=== PATIENT | female | born 1950 | race Caucasian/White ===

== ENCOUNTER 2019-03-01 11:01 | Inpatient (IN) | payer MEDICARE, OTHER ==
[~2019-03-01] VITALS: Ht 167.6 cm; Wt 73.8 kg
[2019-03-01 11:43] LABS: BASOPHILS % (AUTO) 1.1 % (0-1); EOSINOPHILS # (AUTO) 0.1 X10'3 (0-0.9); EOSINOPHILS % (AUTO) 2.7 % (0-6); HEMATOCRIT 45.4 % (35.0-45.0); HEMOGLOBIN 14.7 g/dl (12.0-16.0); LYMPHOCYTES # (AUTO) 1.5 X10'3 (1.1-4.8); LYMPHOCYTES % (AUTO) 44.3 % (21-51); MEAN CORPUSCULAR HEMOGLOBIN 30.3 PG (27.0-31.0); MEAN CORPUSCULAR HGB CONC 32.5 g/dL (33.0-36.5); MEAN CORPUSCULAR VOLUME 93.3 FL (78-98); MONOCYTES # (AUTO) 0.4 X10'3 (0-0.9); MONOCYTES % (AUTO) 12.6 % (2-12); NEUTROPHILS # (AUTO) 1.3 X10'3 (1.8-7.7); NEUTROPHILS % (AUTO) 39.3 % (42-75); PLATELET COUNT 206 X10'3 (140-440); RED BLOOD COUNT 4.87 X10'6 (4.20-5.60); RED CELL DISTRIBUTION WIDTH 13.4 % (11.5-14.5); WHITE BLOOD COUNT 3.4 X10'3 (4.5-11.0)
[2019-03-01 11:46] LABS: PARTIAL THROMBOPLASTIN TIME 28 SECONDS (22-32)
[2019-03-01 11:51] LABS: ALANINE AMINOTRANSFERASE 25 U/L (12-78); ALBUMIN 3.8 G/DL (3.4-5.0); ALBUMIN/GLOBULIN RATIO 1.1 (1.1-1.5); ALKALINE PHOSPHATASE 102 IU/L (46-116); ANION GAP 11 (8-16); ASPARTATE AMINO TRANSFERASE 22 U/L (10-37); BILIRUBIN,TOTAL 0.4 MG/DL (0.1-1.0); BLOOD UREA NITROGEN 21 MG/DL (7-18); BUN/CREATININE RATIO 15.7 (6.6-38.0); CALCIUM 10.3 MG/DL (8.5-10.1); CHLORIDE 105 MMOL/L (99-107); CREATININE 1.34 MG/DL (0.40-0.90); GLUCOSE 147 MG/DL (70-104); POTASSIUM 4.6 MMOL/L (3.5-5.1); SODIUM 141 MMOL/L (135-145); TOTAL CARBON DIOXIDE 25.3 MMOL/L (24-32); TOTAL PROTEIN 7.4 G/DL (6.4-8.2); eGFR 39 ML/MIN
[2019-03-01] MEDS ORDERED: METO50TA16 PO (13:53)
[2019-03-01] MEDS ORDERED: ASPI81TA30 PO (13:53)
[2019-03-01] MEDS ORDERED: OMEP40CA13 PO (13:53)
[2019-03-01] MEDS ORDERED: ROSU5TAB12 PO (13:54)
[2019-03-01] MEDS ORDERED: nitroGLYCERIN 1gm ointment UD TP ONE (13:55)
[2019-03-01] MEDS ORDERED: TACR1CAP2 PO ×2 (13:55)
[2019-03-01] MEDS ORDERED: MYCO250C PO (13:56)
[2019-03-01] MEDS ORDERED: DULA1.5P SQ (14:14)
[2019-03-01] MEDS ORDERED: INSU200I4 SQ (14:14)
[2019-03-01] MEDS ORDERED: NOVLG SQ (14:14)
[2019-03-01] MEDS ORDERED: nitroGLYCERIN 0.4mg SUBLingual tab SL PRN (14:20)
[2019-03-01] MEDS ORDERED: dextrose 50%-water 50ml dispensing syringe IV PRN ×2 (14:20)
[2019-03-01] MEDS ORDERED: mag hydrox/Alum hydrox/simeth 30ml oral suspension PO PRN (14:20)
[2019-03-01] MEDS ORDERED: HYDROcodone/acetaminophen 10/325mg tab PO PRN (14:20)
[2019-03-01] MEDS ORDERED: potassium CL 10mEq/100ml bag 100 ML IV PRN ×2 (14:20)
[2019-03-01] MEDS ORDERED: MESSAGE TO PHARMACY PO ONE (14:20)
[2019-03-01] MEDS ORDERED: regadenoson 0.4mg/5ml syringe IV PRN (14:20)
[2019-03-01] MEDS ORDERED: ondansetron/PF 4mg/2ml inj IV PRN (14:20)
[2019-03-01] MEDS ORDERED: bisacodyl 10mg suppository rectal RC PRN (14:20)
[2019-03-01] MEDS ORDERED: diphenhydrAMINE 25mg capsule PO PRN (14:20)
[2019-03-01] MEDS ORDERED: magnesium 4gm in 100ml NS 100 ML IV PRN (14:20)
[2019-03-01] MEDS: K and/or MAG REPLACEMENT MC SCH (14:20)
[2019-03-01] MEDS ORDERED: glucagon, human recombinant 1mg kit SUBCUT PRN (14:20)
[2019-03-01] MEDS ORDERED: acetaminophen 325mg tablet PO PRN ×2 (14:20)
[2019-03-01] MEDS ORDERED: morphine 2 MG/ML inj. syringe IV PRN ×2 (14:20)
[2019-03-01] MEDS ORDERED: magnesium Cl slow-release 64mg tablet PO PRN (14:20)
[2019-03-01] MEDS ORDERED: potassium Cl 20 mEq SR tablet PO PRN ×2 (14:20)
[2019-03-01] MEDS ORDERED: aminophylline 250mg/10ml inj. IV PRN (14:20)
[2019-03-01] MEDS ORDERED: HYDROcodone/acetaminophen 5mg/325mg tablet PO PRN (14:20)
[2019-03-01] MEDS ORDERED: magnesium hydroxide 30ml (MOM) UD suspension PO PRN (14:20)
[2019-03-01] MEDS ORDERED: metoprolol tartrate 1mg/ml inj IV PRN (14:20)
[2019-03-01] MEDS ORDERED: dextrose ORAL solution 15 GM/59 ML bottle PO PRN ×2 (14:20)
[2019-03-01] MEDS ORDERED: magnesium 2GM in 50ml NS 50 ML IV PRN (14:20)
[2019-03-01] MEDS ORDERED: insulin Lispro (HumaLOG) vial - multi-dose SQ SCH (14:20)
[2019-03-01] MEDS ORDERED: diphenhydrAMINE 50 mg/ml inj IV PRN (14:20)
[2019-03-01 15:07] LABS: CLARITY,URINE CLEAR (Clear); COLOR,URINE YELLOW (Yellow); GLUCOSE, URINE NEGATIVE (Neg); KETONES,URINE NEGATIVE (Neg); LEUKOCYTE ESTERASE ,URINE NEGATIVE (Neg); NITRITES, URINE NEGATIVE (Neg); OCCULT BLOOD,URINE NEGATIVE (Neg); PROTEIN,URINE NEGATIVE (Neg); UROBILINOGEN,URINE 0.2 E.U/dL (0.2-1.0)
[2019-03-01 15:11] LABS: UA COLLECTION TYPE CLN CATCH MIDSTREAM
[2019-03-01] MEDS: normal saline 1000ml 1,000 ML IV SCH ×2 (15:12→15:16)
[2019-03-01 15:29] LABS: HEMOGLOBIN A1C 7.1 % (4.5-6.2)
--- NOTE | 2019-03-01 16:00 | NUR ---
Patient in room PCU 3019. I have received report from Sea CANALES and had the opportunity to ask questions and assume patient care.
[2019-03-01 17:38] VITALS: BP 133/72
[2019-03-01 18:00] VITALS: BP 97/55
--- NOTE | 2019-03-01 18:38 | NUR ---
Problems reprioritized. Patient report given, questions answered & plan of care reviewed with Edin CANALES.
--- NOTE | 2019-03-01 18:40 | NUR ---
Patient in room PCU 3019. I have received report from PARKER Shin and had the opportunity to ask questions and assume patient care.
[2019-03-01 19:00] VITALS: BP 97/55
[2019-03-01 20:00] VITALS: BP_SYST 112; BP_SYST 119; BP_DIAS 56; BP_DIAS 63
--- NOTE | 2019-03-01 20:00 | NUR ---
1999 Orthostatic VS negative. RN notified.
[2019-03-01] MEDS: heparin, porcine 5000 units/ml vial SQ SCH (20:26)
[2019-03-01] MEDS ORDERED: temazepam 15mg capsule PO PRN (21:00)
[2019-03-01] MEDS ORDERED: insulin glargine (Lantus) pen - multi-dose SQ SCH (21:00)
--- NOTE | 2019-03-01 21:10 | NUR ---
Patient states that she doesn't take Lantus at night because her PCP told her that her blood sugar fluctuates a lot. I expalined to her that she met protocol at 21:00 her BS is 208. Since she gets only humalog she will think about it. Addendum: 03/02/19 at 0026 by Edin Parham RN Pt decided to get the Lantus. Lantus was administered late due to patient reluctance at first. Her GFR was 30 so she is getting 12 units and no correctional nightime.
[2019-03-01 22:00] VITALS: BP 118/64
[2019-03-01] MEDS ORDERED: tacrolimus anhydrous 1mg capsule PO SCH ×2 (22:30)
[2019-03-01] MEDS ORDERED: mycophenolate mofetil 250mg capsule PO SCH (22:30)
--- NOTE | 2019-03-01 22:30 | NUR ---
Patient states that her renal transplant medications should be given at 09:30 and 21:30. Patient took the renal meds scheduled at 2129. Will call pharmacy and inform them that patient has her own medications in her purse. Addendum: 03/02/19 at 0022 by Edin Parham RN Per Pharmacy: patient cannot have meds on purse and ask patient if she wants her own medications or the pharmacy's. Pt states that she wants her own medications. All patients medications were send to the pharmacy. Also, her medications are schedule for 929 and 2129 now.
[2019-03-01 23:00] VITALS: BP 122/76
[2019-03-02] VITALS (14 sets, daily range): BP systolic 110–179; BP diastolic 58–92
[2019-03-02] MEDS ORDERED: mycophenolate mofetil 250mg capsule PO SCH ×4 (01:55→09:30)
[2019-03-02] MEDS ORDERED: ROSUVASTATIN CALCIUM PO SCH (02:00)
[2019-03-02] MEDS ORDERED: OMEPRAZOLE PO SCH (02:20)
[2019-03-02 05:55] LABS: BASOPHILS % (AUTO) 0.8 % (0-1); EOSINOPHILS # (AUTO) 0.1 X10'3 (0-0.9); EOSINOPHILS % (AUTO) 2.5 % (0-6); HEMATOCRIT 36.6 % (35.0-45.0); HEMOGLOBIN 12.1 g/dl (12.0-16.0); LYMPHOCYTES # (AUTO) 1.9 X10'3 (1.1-4.8); LYMPHOCYTES % (AUTO) 49.5 % (21-51); MEAN CORPUSCULAR HEMOGLOBIN 30.4 PG (27.0-31.0); MEAN CORPUSCULAR HGB CONC 33.1 g/dL (33.0-36.5); MEAN CORPUSCULAR VOLUME 91.8 FL (78-98); MEAN PLATELET VOLUME 9.1 FL (7.4-10.4); MONOCYTES # (AUTO) 0.4 X10'3 (0-0.9); MONOCYTES % (AUTO) 10.9 % (2-12); NEUTROPHILS # (AUTO) 1.4 X10'3 (1.8-7.7); NEUTROPHILS % (AUTO) 36.3 % (42-75); PLATELET COUNT 169 X10'3 (140-440); RED BLOOD COUNT 3.99 X10'6 (4.20-5.60); RED CELL DISTRIBUTION WIDTH 13.5 % (11.5-14.5); WHITE BLOOD COUNT 3.9 X10'3 (4.5-11.0)
[2019-03-02 05:57] LABS: ALANINE AMINOTRANSFERASE 24 U/L (12-78); ALBUMIN/GLOBULIN RATIO 1.1 (1.1-1.5); ALKALINE PHOSPHATASE 79 IU/L (46-116); ANION GAP 8 (8-16); ASPARTATE AMINO TRANSFERASE 20 U/L (10-37); BILIRUBIN,TOTAL 0.3 MG/DL (0.1-1.0); BLOOD UREA NITROGEN 24 MG/DL (7-18); BUN/CREATININE RATIO 18.9 (6.6-38.0); CALCIUM 9.1 MG/DL (8.5-10.1); CHLORIDE 107 MMOL/L (99-107); CREATININE 1.27 MG/DL (0.40-0.90); GLUCOSE 121 MG/DL (70-104); SODIUM 138 MMOL/L (135-145); TOTAL CARBON DIOXIDE 22.9 MMOL/L (24-32); TOTAL PROTEIN 5.7 G/DL (6.4-8.2); eGFR 42 ML/MIN
[2019-03-02 05:59] LABS: CHOL/HDL RATIO 2.7 (0.00-4.99); CHOLESTEROL 126 MG/DL (0-200); HDL CHOLESTEROL 47 MG/DL (35-60); LDL CHOLESTEROL 71 MG/DL (50-100); MAGNESIUM 1.4 MG/DL (1.5-2.4); PHOSPHORUS 3.4 MG/DL (2.3-4.5); TRIGLYCERIDES 89 MG/DL (20-135)
--- NOTE | 2019-03-02 06:27 | NUR ---
Problems reprioritized. Patient report given, questions answered & plan of care reviewed with PARKER Bolaños. Pt stable at shift change.
--- NOTE | 2019-03-02 06:29 | NUR ---
Patient in room PCU 3019. I have received report from PARKER Jesus and had the opportunity to ask questions and assume patient care.
[2019-03-02] MEDS: K and/or MAG REPLACEMENT MC SCH (07:32)
[2019-03-02] MEDS: heparin, porcine 5000 units/ml vial SQ SCH (07:39)
[2019-03-02] MEDS ORDERED: ROSUVASTATIN CALCIUM 5 MG PO SCH (08:00)
[2019-03-02] MEDS ORDERED: aspirin 81mg tablet.DR PO SCH (09:30)
[2019-03-02] MEDS ORDERED: metoprolol tartrate 50mg tablet PO SCH (09:30)
[2019-03-02] MEDS ORDERED: tacrolimus anhydrous 1mg capsule PO SCH ×2 (09:30→21:30)
[2019-03-02] MEDS: normal saline 1000ml 1,000 ML IV SCH (10:18)
[2019-03-02] MEDS ORDERED: aminophylline inj. 10 ML IV ONE (10:45)
[2019-03-02] MEDS ORDERED: OMEPRAZOLE 40MG PO SCH (11:30)
--- NOTE | 2019-03-02 13:40 | NUR ---
PAGER ID: [phone] MESSAGE: [phone] Kofi Ghotra: Lexiscan results in, Normal Lexiscan cardiac rest and stress test, can we start feeding pt? Thanks Joel [phone]
--- NOTE | 2019-03-02 15:35 | NUR ---
Discharged. PIV taken out and tele returned. Educated on DM survival skill, chest pain and follow-up. Auxillary wheeled out to car and patient was picked up by . All forms and medicare dc rights signed. Stable for DC per MD. Left with all belongs and meds from pharm were returned to patient.
== END 2019-03-02 15:44 | disposition home or self-care (01) | DRG 392 ==
LOC: ER 11:03 → OBSVTOIN 14:30 → ED HOLD 14:30 → PCU 3S 15:50
PROVIDERS: ADMIT Family Medicine; ATTEND Family Medicine
PROC: 4A02XM4 Measurement of Cardiac Total Activity, External Approach (ICD-10-PCS; principal; 2019-03-02)
PROC: 3E033HZ Introduction of Radioactive Substance into Peripheral Vein, Percutaneous Approach (ICD-10-PCS; 2019-03-02)
DX: K21.9 Gastro-esophageal reflux disease without esophagitis (principal); Z94.4 Liver transplant status; N17.9 Acute kidney failure, unspecified; Z94.0 Kidney transplant status; I10 Essential (primary) hypertension; E11.9 Type 2 diabetes mellitus without complications; E78.00 Pure hypercholesterolemia, unspecified; E78.5 Hyperlipidemia, unspecified; I25.10 Atherosclerotic heart disease of native coronary artery without angina pectoris; Z79.4 Long term (current) use of insulin; Z79.82 Long term (current) use of aspirin; Z80.0 Family history of malignant neoplasm of digestive organs; Z98.61 Coronary angioplasty status; Z80.8 Family history of malignant neoplasm of other organs or systems
CPT/HCPCS: 36415; 71045; 78452; 80053; 80061; 81003; 82948; 83036; 83735; 84100; 84484; 85025; 85610; 85730; 93005; 93017; 93306; 97116; 97161; 97530; 99285; A9500; G0378; J0280; J1644; J1815; J2405; J2785; J7030; J7507; J7517